=== PATIENT | female | born 2000 | race Caucasian/White ===

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

== ENCOUNTER 2024-12-13 11:41 | Emergency (ER) | payer OTHER, SELFPAY ==
[2024-12-13 11:50] VITALS: BP 132/74; PULSE 87; RESP 20; TEMP 36.9; O2SAT 100
--- NOTE | 2024-12-13 12:17 | ED.SKABFB ---
HPI - Skin/Abscess/Foreign Bdy General Chief complaint: Skin/Abscess/Foreign Body Stated complaint: Left Side Face Swelling Time Seen by Provider: 12/13/24 12:09 Source: patient and RN notes reviewed Mode of arrival: ambulatory Limitations: dementia History of Present Illness HPI narrative: 24-year-old female presents with concern for swelling and redness to the left cheek. She reports she noticed a bump that started like a pimple recently but is gotten larger more swollen and feels like it is moving towards her eye. She denies drainage from the area. Denies ear pain or dental pain. Denies fever MD complaint: other (Redness) Related Data Allergies Allergy/AdvReac Type Severity Reaction Status Date / Time No Known Allergies Allergy Verified 12/13/24 11:46 Review of Systems Review of Systems: CONSTITUTIONAL: Denies malaise, chills, sweats, or fever. EYES: Denies redness, or discharge. ENT: Denies rhinorrhea, congestion, swollen lips, swollen tongue CARDIOVASCULAR: Denies chest pain, palpitations, or edema. RESPIRATORY: Denies cough or dyspnea. GASTROINTESTINAL: Denies abdominal pain, nausea, vomiting SKIN: Reports redness, swelling to the left cheek. Denies purulent drainage, vesicles, bullae, numbness, pain beyond proportion MUSCULOSKELETAL: Denies joint pain or myalgia. NEUROLOGIC: Denies headache. All systems reviewed & are unremarkable except as noted in HPI and below PMFSH Social History Social History Gender identity (if verbalized by the patient): Female Comments At time of signature, agree with nursing past medical, surgical, social and family history. There is no relevant family history pertinent to the presenting complaint Exam Narrative: GENERAL: Well-appearing, well-nourished, and in no acute distress. HEAD: Normocephalic, atraumatic. EYES: PERRLA, conjunctivae clear ENT: Mucous membranes moist. NECK: Supple. No lymphadenopathy CHEST: Clear to auscultation. No respiratory distress. HEART: Regular rate and rhythm. SKIN: Warm, dry. 0.75cm palpable nodule in the subcutaneous tissue of the left cheek surrounded by approximately 5 cm of erythema, induration, warmth with sharp margins without tenderness or fluctuation. No vesicles, bullae, necrosis, ecchymosis, crepitus noted. NEURO: Alert and oriented x3. PSYCH: Normal mood and affect Course Course Emergency Course: Patient is aware of diagnosis, understands and agrees to treatment plan. Anticipatory guidance given. Patient agrees to follow-up as directed and is aware of reasons to seek care at the emergency department. Portions of this record may have been created with voice recognition software Level of Care: [facility] Visit Vital Signs Vital signs: Vital Signs Temperature 98.5 F 12/13/24 11:50 Pulse Rate 87 12/13/24 11:50 Respiratory Rate 20 12/13/24 11:50 Blood Pressure 132/74 12/13/24 11:50 Pulse Oximetry 100 12/13/24 11:50 Oxygen Delivery Room Air 12/13/24 11:50 Temperature 98.5 F 12/13/24 11:50 Pulse Rate 87 12/13/24 11:50 Respiratory Rate 20 12/13/24 11:50 Blood Pressure 132/74 12/13/24 11:50 Pulse Oximetry 100 12/13/24 11:50 Oxygen Delivery Room Air 12/13/24 11:50 Reviewed. MDM - Skin/Abscess/Foreign Bdy MDM Narrative Medical decision making narrative: I evaluated this in the [facility]. History is obtained from patient who is an independent historian and physical exam was performed.? Available medical records were reviewed. ? Exam findings and relevant testing show no acute concerns or changes; patient is non-toxic appearing and is in no distress. No risk factors or findings concerning for epidural abscess, diskitis, vertebral osteomyelitis, cord compression, cauda equina, vertebral fracture or bone malignancy, AAA, or pyelonephritis. Patient instructed to consider further imaging and workup through their primary care physician as an outpatient if symptoms persist. Does not appear at this time to be erythema multiforme, bullous, SJS, TEN; no evidence at this time to suggest RMSF, NSTI, endocarditis or Lyme disease; patient looks well, nontoxic and is tolerating oral intake; no neurologic signs or symptoms; no headache, photophobia or neck pain; afebrile.? Patient does not have history of of penetrating trauma, laceration, blunt trauma, recent surgery, immunosuppression, malignancy, obesity, alcoholism, corticosteroid use.? Discussed the importance of follow-up, patient agrees; question, cellulitis versus necrotizing soft tissue infection versus abscess.?? Patient is appropriate for outpatient treatment and follow-up. Critical Care Time Critical Care Time Critical Care Time: No Discharge Plan Discharge Clinical Impression: Abscess Patient Disposition: Home Condition: Stable Instructions: Antibiotic Form, Abscess (ED) Additional Instructions: Please follow up with your Primary Care Doctor within 48-72 hours - call for an appointment. Apply moist heat 3-4 times daily for 10-15 minutes. Take Motrin 600mg every 8 hours with food for pain. Please take Antibiotics as directed. If you experience any worsening redness, swelling, streaking (red lines), fever or chills please go to the ER Patient Language: American Prescriptions: New amoxicillin-pot clavulanate 875-125 mg tablet 1 tablet PO Q12H 10 Days Qty: 20 0RF Follow-up/Referrals: Bailey,Benedicto Augustin MD [Primary Care Provider] - Stand Alone Forms: Work/School Release IP Time of Disposition: 12:19
== END 2024-12-13 12:25 | disposition home or self-care (01) ==
PROVIDERS: Emergency Provider Nurse Practitioner; PCP Family Medicine Sports Medicine
DX: L02.01 Cutaneous abscess of face (principal)
CPT/HCPCS: 99213; G0463